=== PATIENT | male | born 1995 | race Two or more races ===

== ENCOUNTER 2021-11-30 20:36 | Emergency (ER) | payer MEDICAID ==
[~2021-11-30] VITALS: Ht 170.2 cm; Wt 83.9 kg
[2021-11-30] MEDS ORDERED: ACETAMINOPHEN 325 MG TAB PO ONE (22:30)
[2021-12-01 00:22] VITALS: BP 125/53
== END 2021-12-01 00:22 | disposition home or self-care (01) ==
LOC: ER 20:36
DX: S90.111A Contusion of right great toe without damage to nail, initial encounter (principal); W20.8XXA Other cause of strike by thrown, projected or falling object, initial encounter; Y93.89 Activity, other specified; Y92.89 Other specified places as the place of occurrence of the external cause; Y99.8 Other external cause status
CPT/HCPCS: 73630